=== PATIENT | female | born 1965 | race Caucasian/White ===

== ENCOUNTER 2022-07-11 12:25 | Emergency (ER) | payer OTHER ==
[~2022-07-11] VITALS: Ht 175.3 cm; Wt 68.0 kg
[2022-07-11 12:45] VITALS: BP_SYST 147
--- NOTE | 2022-07-11 12:47 | NUR ---
PT BIBA C/O BILATERAL EYE PAIN PT STATES SHE HAS LYME DISEASE SINCE 2016 AND IS SENSITIVE TO BACTERIAS. ALLERGIES TO DUST MOLD AND BACTERIA, VSS, NAD, EVEN AND UNLABORED RESPIRATIONS. PT DOES HAVE REDNESS TO BOTH EYES AND WHITE DISCHARGE TO RIGHT EYE. PT STATES EYE PAIN 7/10 AND SAYS IT IS NUMB AND STABBING DESCRIPTION. WILL CONT TO MONITOR.
--- NOTE | 2022-07-11 12:51 | NUR ---
ER at bedside examining patient.
--- NOTE | 2022-07-11 13:00 | NUR ---
PER REPORT PT CAME FROM [facility] [place] AND HAS BEEN CLEANING EYES WITH WIPES AND APPLYING HONEY TO THE EYES. WILL CONT TO MONITOR. BLANKETS HAVE BEEN OFFERED PT HOOKED UP TO VITAL MACHINE.
[2022-07-11 13:36] LABS: BASOPHILS # (AUTO) 0.1 K/uL (0.0-0.2); BASOPHILS % (AUTO) 1.2 % (0.0-2.0); EOSINOPHILS # (AUTO) 0.1 K/uL (0.0-0.4); EOSINOPHILS % (AUTO) 0.8 % (0.0-4.0); HEMATOCRIT 37.8 % (36-48); HEMOGLOBIN 12.7 g/dL (12.0-16.0); LYMPHOCYTES % (AUTO) 15.7 % (20.5-51.5); MEAN CORPUSCULAR HEMOGLOBIN 30 pg (27-31); MEAN CORPUSCULAR HGB CONC 34 % (32-36); MEAN CORPUSCULAR VOLUME 91 fL (79.0-98.0); MONOCYTES # (AUTO) 0.4 K/uL (0.0-1.0); MONOCYTES % (AUTO) 7.1 % (1.7-9.3); NEUTROPHILS # (AUTO) 4.6 K/uL (1.8-7.7); NEUTROPHILS % (AUTO) 75.2 % (40.0-70.0); PLATELET COUNT (AUTO) 208 K/uL (130-430); RED BLOOD CELL COUNT(AUTO) 4.17 MIL/uL (4.2-6.2); RED CELL DISTRIBUTION WIDTH 12.6 % (9.0-15.0); WHITE BLOOD COUNT (AUTO) 6.1 K/uL (4.8-10.8)
[2022-07-11 13:53] LABS: ANION GAP 11 (5-15); CALCIUM 8.8 mg/dL (8.4-11.0); CHLORIDE 99 mmol/L (98-107); CREATININE 0.57 mg/dL (0.55-1.30); GLUCOSE 212 mg/dL (70-99); UREA NITROGEN, BLOOD 13 mg/dL (8-21)
[2022-07-11 13:57] LABS: GFR AFRICAN AMERICAN 141 mL/min (>90)
[2022-07-11 14:00] LABS: ALBUMIN 3.5 g/dL (3.4-4.8); ASPARTATE AMINOTRANSFERASE 11 U/L (10-37); TOTAL BILIRUBIN 0.5 mg/dL (0.0-1.0)
[2022-07-11 14:01] LABS: C-REACTIVE PROTEIN QUANT < 0.2 mg/dL (0-0.5)
[2022-07-11 14:09] LABS: ALANINE AMINOTRANSFERASE 19 U/L (12-78)
[2022-07-11 14:32] LABS: ACETONE, SERUM NEGATIVE (NEGATIVE)
--- NOTE | 2022-07-11 14:50 | NUR ---
NO ACUTE CHANGE IN STATUS, PT LAYING IN ROOM, IN NAD.
[2022-07-11] MEDS ORDERED: OFLO5DRO6 EACH EYE (15:13)
[2022-07-11] MEDS ORDERED: AMOX250C PO (15:19)
[2022-07-11] MEDS ORDERED: traMADol HCL HCL 50 MG TABLET (ULTRAM) PO ONE (17:15)
--- NOTE | 2022-07-11 18:20 | NUR ---
NO CHANGES PT AOX4 EVEN UNLABORED RESPIRATIONS WILL CONTINUE TO MONITOR. PT WOULD LIKE TO GO TO ANOTHER HOSPITAL PT IS COMPLAINING OF HER CURRENT PLACEMENT.
--- NOTE | 2022-07-11 20:08 | NUR ---
Pt assessed, in bed. Awakens easily to verbal stimuli. A&Ox 4. VS stable at this time, no distress noted. Resting comfortably in bed with safety precautions in place.
--- NOTE | 2022-07-11 21:05 | NUR ---
Pt reports feeling like her blood sugar is low. BS obtained with glucometer = 61. Pt provided with crackers. Addendum: 07/11/22 at 2246 by [id number] Pt also provided with a sandwich.
[2022-07-11] MEDS ORDERED: HYDROcodone/ACETAMIN 10-325 MG TAB PO ONE (21:15)
--- NOTE | 2022-07-11 22:47 | NUR ---
BS rechecked = 176
[2022-07-11 23:41] VITALS: BP_SYST 106
--- NOTE | 2022-07-11 23:44 | NUR ---
Pt transferred from hospital accompanied by [facility]. Pt refused to sign the "Patient Signature Page". Pt became agitated & uncooperative upon knowing she would return to the SNF.Patient given written and verbal discharge instructions and verbalizes understanding but is resistant to treatment recommendations after discovering she would return to the SNF - refused to sign d/c instruction form. ER MD discussed with patient the results and treatment provided. Patient in stable condition. ID arm band removed. Rx for Amoxicillin & Ofloxacin given. Patient educated on pain management and to follow up with PMD. Pain Scale 0/10. Opportunity for questions provided and answered. Medication side effect fact sheet provided.
== END 2022-07-11 23:41 | disposition home or self-care (01) ==
LOC: SED 12:25
DX: H10.89 Other conjunctivitis (principal); F99 Mental disorder, not otherwise specified; E11.9 Type 2 diabetes mellitus without complications; Z79.899 Other long term (current) drug therapy; Z20.822 Contact with and (suspected) exposure to COVID-19
CPT/HCPCS: 99283; 87426; 80053; 82009; 82962; 85025; 86140; 36415; 83605; G0482

== ENCOUNTER 2022-07-18 13:48 | Emergency (ER) | payer OTHER ==
[~2022-07-18] VITALS: Ht 175.3 cm; Wt 53.1 kg
[~2022-07-18 13:48] MED LIST: AMOX250C PO; OFLO5DRO6 EACH EYE
[2022-07-18 14:07] VITALS: BP_SYST 130
[2022-07-18 15:21] LABS: BASOPHILS % (AUTO) 0.6 % (0.0-2.0); EOSINOPHILS # (AUTO) 0.1 K/uL (0.0-0.4); EOSINOPHILS % (AUTO) 1.7 % (0.0-4.0); HEMATOCRIT 35.5 % (36-48); HEMOGLOBIN 12.3 g/dL (12.0-16.0); LYMPHOCYTES % (AUTO) 25.7 % (20.5-51.5); MEAN CORPUSCULAR HEMOGLOBIN 31 pg (27-31); MEAN CORPUSCULAR HGB CONC 35 % (32-36); MEAN CORPUSCULAR VOLUME 90 fL (79.0-98.0); MONOCYTES # (AUTO) 0.3 K/uL (0.0-1.0); MONOCYTES % (AUTO) 8.3 % (1.7-9.3); NEUTROPHILS # (AUTO) 2.5 K/uL (1.8-7.7); NEUTROPHILS % (AUTO) 63.7 % (40.0-70.0); PLATELET COUNT (AUTO) 195 K/uL (130-430); RED BLOOD CELL COUNT(AUTO) 3.96 MIL/uL (4.2-6.2); RED CELL DISTRIBUTION WIDTH 12.4 % (9.0-15.0)
--- NOTE | 2022-07-18 15:30 | NUR ---
ER at bedside examining patient.
[2022-07-18 15:36] LABS: ANION GAP 6 (5-15); CALCIUM 8.9 mg/dL (8.4-11.0); CHLORIDE 98 mmol/L (98-107); CREATININE 0.64 mg/dL (0.55-1.30); GLUCOSE 360 mg/dL (70-99); UREA NITROGEN, BLOOD 18 mg/dL (8-21)
[2022-07-18 15:39] LABS: GFR AFRICAN AMERICAN 123 mL/min (>90)
[2022-07-18 15:42] LABS: ALANINE AMINOTRANSFERASE 17 U/L (12-78); ALBUMIN 3.4 g/dL (3.4-4.8); ASPARTATE AMINOTRANSFERASE 11 U/L (10-37); TOTAL BILIRUBIN 0.3 mg/dL (0.0-1.0)
--- NOTE | 2022-07-18 15:45 | NUR ---
Pt brought in by CHRISTINA from [facility]. Chief complaint medical clearance of severe anxiety. Pt is aaox3, appearance shiny skin pt notes castor oil applied to face for antiseptic properties. Pt states ate this morning at 0830 and is refusing food per "stomach burn" Encouraged food; blood sugar is 174. Pt states diagnosis of Lyme disease, muscle weakness, type 2 diabetes and ADHD. Pt ambulates with assistance and weakness, unsteady gait.
--- NOTE | 2022-07-18 16:07 | NUR ---
Placed in room H2 . Placed on gambling monitor, blood pressure machine and pulse oximeter. To gown for exam. Side rails up. Report given to PADMINI SOTELO.
--- NOTE | 2022-07-18 17:36 | NUR ---
ACCUCHECK:[id number] PT AAOX4
--- NOTE | 2022-07-18 20:58 | NUR ---
PT aaox3, no signs of distress pt denies anxiety and requests continued rest. No acute distress.
[2022-07-18] MEDS ORDERED: ALPRAZolam 0.25 MG TABLET PO ONE (21:15)
--- NOTE | 2022-07-18 21:25 | NUR ---
Received report at this time from JP Darling.
--- NOTE | 2022-07-18 21:35 | NUR ---
Notified ER provider that patient refused medication. Pt resting in bed with eyes closed. Pt stated,"I'm fine. I was almost asleep."
--- NOTE | 2022-07-19 00:33 | NUR ---
Report given to JP Hull. Notified by Will, catalyst unit operator that no transport is available at this time.
--- NOTE | 2022-07-19 00:35 | NUR ---
REC PT FROM [facility]. PT RESTING IN BED WITH BLANKET OVER HER HEAD. PT DENIES DISCOMFORT AT THIS TIME. EVEN AND UNLABORED RESP NOTED, NAD. SAFETY PRECAUTIONS IN PLACE.
--- NOTE | 2022-07-19 01:20 | NUR ---
PT GIVEN NEW MASK AND BLANKETS. PT CHOOSES TO REST UNDER THE BLANKETS. EVEN AND UNLABORED RESP NOTED, NAD. SAFETY PRECAUTIONS IN PLACE.
--- NOTE | 2022-07-19 07:00 | NUR ---
ED MD AT BEDSIDE EXAMINING PT.
--- NOTE | 2022-07-19 07:23 | NUR ---
REPORT GIVEN TO PADMINI SOTELO TO ASSUME CARE.
[2022-07-19] MEDS ORDERED: INSULIN GLARGINE 100 UNITS/ML, 10 ML VIAL SUBCUT ONE (07:30)
--- NOTE | 2022-07-19 07:30 | NUR ---
Pt moved to bed 05 report given to Joshua TRAMMELL.
[2022-07-19] MEDS: POLYMYXIN B/TRIMETHOPRIM EYE DROPS 10 mL OP SCH ×2 (08:57→08:58)
[2022-07-19] MEDS ORDERED: INSULIN Lispro 100 UNITS/ML, 3 ML VIAL (humaLOG) SUBCUT ONE (10:45)
--- NOTE | 2022-07-19 14:00 | NUR ---
PT MEDICALLY CLEARED FOR TRANSFER TO [facility]. TRANSFER INSTRUCTIONS GIVEN TO EMT. PT ACKNOWLEDGES TRANSFFER TO NEXT FACILITY. PT IS AAOX4. NAD, WRISTBAND REMOVED. PT AMBULATORY WITH [facility]. PT LEFT ED WITH ALL BELONGINGS.
[2022-07-19 15:03] VITALS: BP_SYST 117
== END 2022-07-19 14:00 ==
LOC: SED 13:48
DX: Z00.00 Encounter for general adult medical examination without abnormal findings (principal); F41.9 Anxiety disorder, unspecified; R06.02 Shortness of breath; E11.9 Type 2 diabetes mellitus without complications; Z79.899 Other long term (current) drug therapy
CPT/HCPCS: 36415; 70450-TC; 71045; 76376; 80053; 82962; 83880; 84484; 85025; 93005; 96372; 99285; J1815